=== PATIENT | female | born 1990 | race African-American/Black ===

== ENCOUNTER 2016-05-10 13:54 | Emergency (ER) | payer MEDICAID, OTHER ==
[~2016-05-10] VITALS: Ht 162.6 cm; Wt 80.0 kg
[2016-05-10 13:56] VITALS: BP 138/72; PULSE 84; RESP 16; TEMP 98.3; O2SAT 98
[2016-05-10] MEDS ORDERED: IBUPROFEN 800 MG TAB PO ONE (14:30)
--- NOTE | 2016-05-10 14:30 | PD ---
HPI Chief Complaint: Oral / Dental Pain or Problem Time Seen by Provider: 14:29 Travel History International Travel<30 days: No Contact w/Intl Traveler<30days: No Traveled to known affect area: No History of Present Illness HPI 25-year-old female presents to the emergency Department with complaint of pain to her left lower wisdom tooth that is worsened over the last 2 days. She has an appointment on July 23 with a dentist for to be extracted. The past 2 days the pain has worsened and she reports her gums around the tooth are now swollen. Pain is aggravated when she opens and closes her mouth and eats. Denies fever, chills, nausea or vomiting. Denies difficulty swallowing. Has not taken any medications or tried any treatments to alleviate her symptoms. Denies significant past medical history. No known allergies. No other modifying factors or seceded signs and symptoms. PFSH Past Medical History Medical History: Denies Significant Hx Tetanus Vaccination: Unknown ?: Unknown Past Surgical History Surgical History: No Previous Surgery Section: Yes Social History Alcohol Use: No Tobacco Use: No Substance Use: No Allergies-Medications (Allergen,Severity, Reaction): Coded Allergies: No Known Allergies (Verified , 05/10/16) Reported Meds & Prescriptions Reported Meds & Active Scripts Active Magic Mouthwash Adult Liq (Multi-Ingredient Mouthwash/Gargle) 120 Ml Susp 5 Ml SWISH-SPIT Q3HR PRN Each 5 mL contains: Nystatin 200,000 units, Diphenhydramine 4.25 mg, Viscous Lidocaine 10 mg, Dick syrup 0.8 mL Peridex Liq (Chlorhexidine Gluconate (Mouth) Liq) 0.12% Soln 15 Ml SWISH-SPIT BID 10 Days Ibuprofen 800 Mg Tab 800 Mg PO Q6HR PRN Amoxicillin 500 Mg Tab 500 Mg PO BID 10 Days Review of Systems Except as stated in HPI: all other systems reviewed are Neg Physical Exam Narrative GENERAL: Well-nourished, well-developed female patient, in no acute distress; afebrile, nontoxic-appearing SKIN: Warm and dry. HEAD: Atraumatic. Normocephalic. No facial edema, erythema, tenderness on palpation. No lymphadenopathy. EYES: Pupils equal and round. No scleral icterus. No injection or drainage. ENT: Mucosa pink and moist. Airway patent. MOUTH: Mucous membranes moist, no lesions, tongue and gums appear normal. Left lower wisdom tooth #17 with tenderness on palpation; surrounding gingiva is mildly edematous and without obvious abscess, drainage, erythema. NECK: Trachea midline. No lymphadenopathy. CARDIOVASCULAR: Regular rate. RESPIRATORY: No accessory muscle use. GASTROINTESTINAL: Flat. MUSCULOSKELETAL: No obvious deformities. No clubbing. No cyanosis. No edema. NEUROLOGICAL: Awake and alert. Oriented 3. No obvious cranial nerve deficits. Motor grossly within normal limits. Normal speech. PSYCHIATRIC: Appropriate mood and affect; insight and judgment normal. Data Data Last Documented VS Vital Signs Date Time Temp Pulse Resp B/P Pulse Ox O2 Delivery O2 Flow Rate FiO2 05/10/16 13:56 98.3 84 16 138/72 98 Room Air Orders Ibuprofen (Motrin) (05/10/16 14:30) MDM Medical Decision Making Medical Screen Exam Complete: Yes Emergency Medical Condition: Yes Medical Record Reviewed: Yes Differential Diagnosis Dentalgia, tooth impaction, dental abscess Narrative Course 25-year-old female with left lower wisdom tooth #17 with tenderness to palpation. No facial erythema, edema, lymphadenopathy. Patient is afebrile. Denies fever, chills, nausea, vomiting. Patient has dental appointment on July 23 and has had increasing pain over the last 2 days. I will treat the patient with antibiotics For possible dental abscess development. Amoxicillin, Magic mouthwash,. Mouth rinse, ibuprofen prescribed for home. Instructed patient to follow up with dentist. Patient is medically cleared and stable for discharge. Discussed reasons to return to the emergency department. Instructed patient to follow up with primary care provider. Patient agrees with treatment plan. The patients vital signs are stable and the patient is stable for outpatient follow-up and treatment. Patient discharged home, stable and in no acute distress. Diagnosis Primary Impression: Dentalgia Referrals: Dentist Primary Care Physician Patient Instructions: Dental Abscess (ED), General Instructions, Toothache (ED) Additional Instructions: Complete full course of antibiotics Ibuprofen as directed and as needed to reduce pain and inflammation Use Magic mouthwash rinse as directed and as needed to decrease pain Use Peridex as directed for oral hygiene Warm compresses to the affected area Follow-up with dentist Follow-up with primary care provider Return to emergency department immediately with worsening of symptoms Med/Other Pt SpecificInfo: Prescription(s) given Scripts Joechzuk-Ngmiboqymrkfqji-Vfbnsqeeg Liq (Magic Mouthwash Adult Liq)120 Ml Susp5 Ml SWISH-SPIT Q3HR PRN (PAIN SCALE 1 TO 10) #120 ML Ref 0 Each 5 mL contains: Nystatin 200,000 units, Diphenhydramine 4.25 mg, Viscous Lidocaine 10 mg, Dick syrup 0.8 mL Prov:Jenna John 05/10/16 Chlorhexidine Gluconate (Mouth) Liq (Peridex Liq)0.12% Soln15 Ml SWISH-SPIT BID 10 Days Ref 0 Prov:Jenna John 05/10/16 Ibuprofen 800 Mg [id number] Mg PO Q6HR PRN (PAIN) #30 TAB Ref 0 Prov:Jenna John 05/10/16 Amoxicillin 500 Mg [id number] Mg PO BID 10 Days Ref 0 Prov:Jenna John 05/10/16 Disposition: 01 DISCHARGE HOME Condition: Stable Jenna John May 10, 2016 14:29
[2016-05-10] MEDS ORDERED: AMOX500T PO (14:31)
[2016-05-10] MEDS ORDERED: IBUP800T23 PO (14:31)
[2016-05-10] MEDS ORDERED: MAGICADU2 SWISH-SPIT (14:32)
[2016-05-10] MEDS ORDERED: PERI0.126 SWISH-SPIT (14:32)
== END 2016-05-10 14:57 | disposition home or self-care (01) ==
LOC: NEPB 13:54
DX: K08.89 Other specified disorders of teeth and supporting structures (principal)
CPT/HCPCS: 99282

== ENCOUNTER 2017-09-14 18:21 | Emergency (ER) | payer MEDICAID ==
[~2017-09-14] VITALS: Ht 162.6 cm; Wt 80.0 kg
[~2017-09-14 18:21] MED LIST: AMOX500T PO; IBUP1TAB7 PO; MAGICADU2 SWISH-SPIT; PERI0.126 SWISH-SPIT
[2017-09-14 18:38] VITALS: BP 126/72; PULSE 84; RESP 16; TEMP 99.4; O2SAT 99
--- NOTE | 2017-09-14 18:54 | PD ---
HPI Chief Complaint: Eye Problems/Injury Time Seen by Provider: 18:42 Travel History International Travel<30 days: No Contact w/Intl Traveler<30days: No Traveled to known affect area: No History of Present Illness HPI 27-year-old female presents to the emergency department for evaluation left eye pain, drainage, foreign body sensation that started earlier today after she used clear eyes. Patient states that her eye irritation is starting to give her headache. Current pain is 7/10. Patient reports clear drainage. She does not wear glasses or contacts. She has no chronic medical problems and takes no prescribed medications. No exacerbating or alleviating factors. No photophobia. Mild severity. PFSH Past Medical History ?: Not Past Surgical History Section: Yes Social History Alcohol Use: No Tobacco Use: No Substance Use: No Allergies-Medications (Allergen,Severity, Reaction): Coded Allergies: No Known Allergies (Verified , 05/10/16) Reported Meds & Prescriptions Reported Meds & Active Scripts Active Magic Mouthwash Adult Liq (Multi-Ingredient Mouthwash/Gargle) 120 Ml Susp 5 Ml SWISH-SPIT Q3HR PRN Each 5 mL contains: Nystatin 200,000 units, Diphenhydramine 4.25 mg, Viscous Lidocaine 10 mg, Dick syrup 0.8 mL Peridex Liq (Chlorhexidine Gluconate (Mouth) Liq) 0.12% Soln 15 Ml SWISH-SPIT BID 10 Days Ibuprofen 800 Mg Tab 800 Mg PO Q6HR PRN Amoxicillin 500 Mg Tab 500 Mg PO BID 10 Days Review of Systems Except as stated in HPI: all other systems reviewed are Neg Physical Exam Narrative GENERAL: Well-nourished, well-developed female patient, ambulatory. Afebrile. SKIN: Focused skin assessment warm/dry. HEAD: Normocephalic. Atraumatic. EYES: No scleral icterus. No injection or drainage. PERRLA. EOM intact. Clear drainage noted from left eye. ENT: Mucosa pink and moist. No erythema or exudates. No uvular edema. No uvular, palatal, or tonsillar deviation. Airway patent. Nasal turbinates appear normal without nasal blood, purulent drainage or septal hematoma. Bilateral tympanic membranes clear without erythema or perforation. No foreign body seen in upper lid eversion. Fluorescein examination is negative. IOP is 14 in the left eye. NECK: Supple, trachea midline. No JVD or lymphadenopathy. CARDIOVASCULAR: Regular rate and rhythm without murmurs, gallops, or rubs. RESPIRATORY: Breath sounds equal bilaterally. No accessory muscle use. Lung sounds are clear to auscultation. GASTROINTESTINAL: Abdomen soft, non-tender, nondistended. MUSCULOSKELETAL: No cyanosis, or edema. Data Data Last Documented VS Vital Signs Date Time Temp Pulse Resp B/P (MAP) Pulse Ox O2 Delivery O2 Flow Rate FiO2 09/14/17 18:38 99.4 84 16 126/72 (90) 99 Orders Orders Proparacaine 0.5% Opth Soln (Alcaine 0.5 (09/14/17 19:00) Ibuprofen (Motrin) (09/14/17 19:00) [facility] Medical Decision Making Medical Screen Exam Complete: Yes Emergency Medical Condition: Yes Medical Record Reviewed: Yes Differential Diagnosis Foreign body versus corneal abrasion versus corneal laceration versus iritis versus conjunctivitis Narrative Course 27-year-old female presents to the emergency department for evaluation of left eye irritation after she is clear eyes today. She does appear well on exam. Physical exam is reassuring. Patient was discharged prescription for erythromycin ophthalmologic drops and ibuprofen for pain. She is to follow-up with an game author if symptoms continue or worsen. The patient was discharged in stable condition with instructions, including return instructions and follow up instructions. Diagnosis Primary Impression: Irritation of left eye Referrals: Shonna Madison MD call for appointment Patient Instructions: Eye Pain (ED), General Instructions Additional Instructions: Use erythromycin ophthalmic ointment as directed. Take ibuprofen as directed as needed with food for pain. Warm, moist compresses to the left eye. Follow up with Dr. Madison. Call her in the morning for an appointment. Return to the emergency department for any acute worsening of symptoms Med/Other Pt SpecificInfo: Prescription(s) given Scripts Ibuprofen (Ibuprofen) 800 Mg Tab 800 MG PO TID for Arthritis Pain, #21 TAB 0 Refills Prov: Ann Marie Mata 09/14/17 Erythromycin Opth Oint (Erythromycin Opth Oint) 5 Mg/Gm Oint 1 APPLIC LEFT EYE QID for Infection, #1 TUBE 0 Refills Prov: Ann Marie Mata 09/14/17 Disposition: DISCHARGE HOME Condition: Stable Ann Marie Mata September 14, 2017 18:54
[2017-09-14] MEDS ORDERED: PROPARACAINE HCL 0.5% OPHT SOLN 15 ML BTL EACH EYE ONE (19:00)
[2017-09-14] MEDS ORDERED: IBUPROFEN 800 MG TAB PO ONE (19:00)
[2017-09-14] MEDS ORDERED: IBUP1TAB7 PO (19:17)
[2017-09-14] MEDS ORDERED: ERYTOIN10 LEFT EYE (19:17)
== END 2017-09-14 19:44 | disposition home or self-care (01) ==
LOC: NEPK 18:21
DX: H57.8 Other specified disorders of eye and adnexa (principal)
CPT/HCPCS: 99283